=== PATIENT | female | born 1980 | race Caucasian/White ===

== ENCOUNTER 2017-05-13 10:37 | Emergency (ER) | payer BC ==
[2017-05-13 10:49] VITALS: RESP 16; O2SAT 96
--- NOTE | 2017-05-13 10:54 | EDPHY ---
H & P Time Seen by Provider: 05/13/17 10:44 HPI/ROS: Chief complaint. Vaginal bleeding with HPI. 36-year-old female 5, para 2, AB 2, 7.5 weeks with 1 week history vaginal bleeding. She had brown spotting over the past week and then last night it became bright red. It is low this morning and present only on toilet paper with wiping. She had an ultrasound 1 week ago that was normal. She has some shooting, in she low abdominal pain slightly more on the left. Some achy low back pain. No urinary symptoms. No fever. Patient has known AB negative blood type has received RhoGAM previously. She has not received RhoGAM so far this week for bleeding ROS Constitutional. no fever/chills, no weakness Eyes. no problems with vision ENT. no sore throat, no nasal drainage Cardiovascular. no chest pain Respiratory. no shortness of breath, no cough Abdominal. Low abdominal pain; vaginal spotting . no problems urinating MS. low back pain Skin. no rash Lymph. no swollen glands Neuro. no headache, no dizziness, no difficulty walking or with speech Past Medical/Surgical History: Preeclampsia, D&C Social History: , nonsmoker, no alcohol Smoking Status: Never smoked Physical Exam: General Appearance: Alert pleasant well-developed female mild distress vital signs are stable Eyes: Pupils equal and round no pallor or injection. ENT, Mouth: Mucous membranes are moist. Respiratory: There are no retractions, lungs are clear to auscultation. Cardiovascular: Regular rate and rhythm. Gastrointestinal: Abdomen is soft with mild tenderness in the left adnexal area. No masses. Normal bowel sounds Neurological: Awake and alert, sensory and motor exams grossly normal. Skin: Warm and dry, no rashes. Musculoskeletal: Neck is supple nontender. Extremities symmetrical, full range of motion. Psychiatric: Patient is oriented X 3, there is no agitation. Constitutional: Initial Vital Signs Temperature (C) 36.9 C 05/13/17 10:44 Heart Rate 77 05/13/17 10:44 Respiratory Rate 16 05/13/17 10:44 Blood Pressure 114/76 05/13/17 10:44 O2 Sat (%) 96 05/13/17 10:44 O2 Delivery Mode Room Air Allergies/Adverse Reactions: No Known Allergies Allergy (Unverified 05/13/17 10:50) Home Medications: Medication Instructions Recorded Vit27&Calcium/Iron/FA 1 tab PO TID 06/12/13 [] Lysine 500 mg PO DAILY06 06/19/13 Wp Thyroid 05/13/17 Medical Decision Making - Diagnostics Imaging Results: Imaging Impressions Pelvic/Renal Ultrasound 05/13/17 11:14 Impression: 1. Small subchorionic hemorrhage. Single viable intrauterine gestation at 8 weeks 3 days. Ultrasound NEAL 12/20/2017. Results discussed with Dr. Mando Pratt. Ultrasound reviewed by me and discussed with Dr. Nayak shows a viable intrauterine be appropriate for dates. Small subchorionic hemorrhage. Procedures: Micro RhoGAM dose is given IM ED Course/Re-evaluation: Re-evaluation 1:00 p.m.. Patient is stable. No further vaginal bleeding. No abdominal pain. She and I discussed imaging and lab results. We discussed treatment plan including criteria for return importance of follow-up and further evaluation. She expresses understanding and agreement The RhoGAM still has not arrived. We will arrange for the patient to return this afternoon for RhoGAM injection at that he has not arrived shortly. Differential Diagnosis: I considered threatened miscarriage, demise, subchorionic hemorrhage, urinary tract infection, blighted ovum. Patient is Rh negative and was vaginal bleeding will be given micro dose of RhoGAM - Data Points Laboratory Results: Laboratory Results 05/13/17 11:26 05/13/17 11:26 05/13/17 05/13/17 05/13/17 12:38 11:58 11:26 WBC RBC Hgb Hct MCV MCH MCHC RDW Plt Count MPV Neut % (Auto) Lymph % (Auto) [place] % (Auto) Eos % (Auto) Baso % (Auto) Nucleat RBC Rel Count Absolute Neuts (auto) Absolute Lymphs (auto) Absolute Monos (auto) Absolute Eos (auto) Absolute Basos (auto) Absolute Nucleated RBC Immature Gran % Immature Gran # Sodium 137 mEq/L mEq/L (134-144) Potassium 4.4 mEq/L mEq/L (3.5-5.2) Chloride 103 mEq/L mEq/L (97-110) Carbon Dioxide 23 mEq/l mEq/l (22-31) Anion Gap 11 mEq/L mEq/L (8-16) BUN 11 mg/dL mg/dL (7-23) Creatinine 0.5 mg/dL L mg/dL (0.6-1.0) Estimated GFR > 60 Glucose 104 mg/dL H mg/dL (70-100) Calcium 9.1 mg/dL mg/dL (8.5-10.4) Beta HCG, Quant 495820.00 mIU/mL H mIU/mL (0.00-4.83) Urine Color YELLOW Urine Appearance CLEAR Urine pH 6.5 (5.0-7.5) Ur Specific [place] <= 1.005 (1.002-1.030) Urine Protein NEGATIVE (NEGATIVE) Urine Ketones NEGATIVE (NEGATIVE) Urine Blood NEGATIVE (NEGATIVE) Urine Nitrate NEGATIVE (NEGATIVE) Urine Bilirubin NEGATIVE (NEGATIVE) Urine Urobilinogen 0.2 EU EU (0.2-1.0) Ur Leukocyte Esterase NEGATIVE (NEGATIVE) Urine RBC 0-1 /hpf /hpf (0-3) Urine WBC NONE SEEN /hpf /hpf (0-3) Ur Epithelial Cells 1+ /lpf /lpf (NONE-1+) Urine Bacteria TRACE /hpf H /hpf (NONE SEEN) Urine Glucose NEGATIVE (NEGATIVE) Patient ABO/Rh Pending 05/13/17 11:26 WBC 10.16 10^3/uL H 10^3/uL (3.80-9.50) RBC 3.92 10^6/uL L 10^6/uL (4.18-5.33) Hgb 12.2 g/dL L g/dL (12.6-16.3) Hct 34.5 % L % (38.0-47.0) MCV 88.0 fL fL (81.5-99.8) MCH 31.1 pg pg (27.9-34.1) MCHC 35.4 g/dL g/dL (32.4-36.7) RDW 12.7 % % (11.5-15.2) Plt Count 205 10^3/uL 10^3/uL (150-400) MPV 10.6 fL fL (8.7-11.7) Neut % (Auto) 74.3 % H % (39.3-74.2) Lymph % (Auto) 18.5 % % (15.0-45.0) [place] % (Auto) 6.3 % % (4.5-13.0) Eos % (Auto) 0.2 % L % (0.6-7.6) Baso % (Auto) 0.5 % % (0.3-1.7) Nucleat RBC Rel Count 0.0 % % (0.0-0.2) Absolute Neuts (auto) 7.55 10^3/uL H 10^3/uL (1.70-6.50) Absolute Lymphs (auto) 1.88 10^3/uL 10^3/uL (1.00-3.00) Absolute Monos (auto) 0.64 10^3/uL 10^3/uL (0.30-0.80) Absolute Eos (auto) 0.02 10^3/uL L 10^3/uL (0.03-0.40) Absolute Basos (auto) 0.05 10^3/uL 10^3/uL (0.02-0.10) Absolute Nucleated RBC 0.00 10^3/uL 10^3/uL (0-0.01) Immature Gran % 0.2 % % (0.0-1.1) Immature Gran # 0.02 10^3/uL 10^3/uL (0.00-0.10) Sodium Potassium Chloride Carbon Dioxide Anion Gap BUN Creatinine Estimated GFR Glucose Calcium Beta HCG, Quant Urine Color Urine Appearance Urine pH Ur Specific [place] Urine Protein Urine Ketones Urine Blood Urine Nitrate Urine Bilirubin Urine Urobilinogen Ur Leukocyte Esterase Urine RBC Urine WBC Ur Epithelial Cells Urine Bacteria Urine Glucose Patient ABO/Rh Departure - Departure Disposition: Home, Routine, Self-Care Clinical Impression: Threatened miscarriage in early Condition: Good Instructions: Threatened Miscarriage (ED) Additional Instructions: Easy activity the next 1-2 days. Return for worsening cramping or bleeding. Return this afternoon for RhoGAM shot. 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
[2017-05-13 11:31] LABS: % IMMATURE GRANULYOCYTES 0.2 % (0.0-1.1); ABSOLUTE IMMATURE GRANULOCYTES 0.02 10^3/uL (0.00-0.10); ADD DIFF? NO; ADD MORPH? NO; ADD SCAN? NO; ATYPICAL LYMPHOCYTE FLAG 10 (0-99); FRAGMENT RBC FLAG 0 (0-99); HEMATOCRIT 34.5 % (38.0-47.0); HEMOGLOBIN 12.2 g/dL (12.6-16.3); LEFT SHIFT FLG 0 (0-99); LIPEMIA HEMOLYSIS FLAG 90 (0-99); MEAN CELL HEMOGLOBIN 31.1 pg (27.9-34.1); MEAN CELL HEMOGLOBIN CONCENTR. 35.4 g/dL (32.4-36.7); MEAN PLATELET VOLUME 10.6 fL (8.7-11.7); PLATELET CLUMPS FLAG 0 (0-99); PLATELET COUNT 205 10^3/uL (150-400); RED BLOOD CELL COUNT 3.92 10^6/uL (4.18-5.33); RED CELL DISTRIBUTION WIDTH 12.7 % (11.5-15.2)
[2017-05-13 11:49] LABS: ANION GAP 11 mEq/L (8-16); CALCIUM 9.1 mg/dL (8.5-10.4); CARBON DIOXIDE 23 mEq/l (22-31); CHLORIDE 103 mEq/L (97-110); CREATININE 0.5 mg/dL (0.6-1.0); GLOMERULAR FILTRATION RATE > 60; GLUCOSE 104 mg/dL (70-100); POTASSIUM 4.4 mEq/L (3.5-5.2); SODIUM 137 mEq/L (134-144)
[2017-05-13 13:01] LABS: COLOR YELLOW; LEUKOCYTE ESTERASE,URINE NEGATIVE (NEGATIVE); NITRITE,URINE NEGATIVE (NEGATIVE); PH,URINE 6.5 (5.0-7.5)
[2017-05-13 13:11] LABS: BACTERIA TRACE /hpf (NONE SEEN); RBC,URINE 0-1 /hpf (0-3); WBC,URINE NONE SEEN /hpf (0-3)
[2017-05-13 13:45] VITALS: BP 115/80; PULSE 75; TEMP 98.2
[2017-05-13] MEDS ORDERED: RHOGAM IM ONE (14:24)
== END 2017-05-13 13:43 | disposition home or self-care (01) ==
LOC: CED 10:37
DX: O20.0 Threatened abortion (principal); Z3A.08 8 weeks gestation of pregnancy
CPT/HCPCS: 76856-PO; 80048-PO; 81003-PO; 81015-PO; 84702-PO; 85025-PO

== ENCOUNTER → 2017-08-21 | Outpatient (CLI) | payer BC | LOC: FIMAGING 09:30 | PROVIDERS: ATTEND Obstetrics & Gynecology | DX: O09.522 Supervision of elderly multigravida, second trimester (principal); O09.212 Supervision of pregnancy with history of pre-term labor, second trimester; Z3A.22 22 weeks gestation of pregnancy; Z82.49 Family history of ischemic heart disease and other diseases of the circulatory system ==